=== PATIENT | female | born 1985 | race Caucasian/White ===

== ENCOUNTER 2018-08-19 21:10 | Emergency (ER) | payer BC ==
[~2018-08-19] VITALS: Ht 152.4 cm; Wt 78.5 kg
[2018-08-19 21:18] VITALS: Ht 152.4 cm; Wt 78.5 kg
[2018-08-19 21:59] LABS: BASOPHIL % 0.7 % (0-2); PLATELET COUNT 358 x10^3mcL (130-400); RED CELL DISTRIBUTION WIDTH 12.6 % (11.5-14.5)
[2018-08-19 22:17] LABS: CALCIUM 9.1 mg/dL (8.5-10.1); CHLORIDE SERUM 103 mmol/L (98-107); CREATININE SERUM 0.7 mg/dL (0.6-1.0); GFR1 > 60 mL/min; GLUCOSE SERUM 106 mg/dL (74-106); POTASSIUM SERUM 3.5 mmol/L (3.5-5.1); SODIUM SERUM 139 mmol/L (136-145)
[2018-08-19 22:22] LABS: ALBUMIN 3.8 g/dL (3.4-5.0); ALKALINE PHOSPHATASE 61 U/L (46-116); ALT/SGPT 24 U/L (14-59); AST/SGOT 12 U/L (15-37); BILIRUBIN TOTAL 0.16 mg/dL (0.20-1.00); TOTAL PROTEIN, SERUM 7.3 g/dL (6.4-8.2)
[2018-08-20 00:36] VITALS: BP 98/60
== END 2018-08-20 00:36 | disposition home or self-care (01) ==
LOC: ED 21:10
PROVIDERS: Emergency Medicine
DX: N80.9 Endometriosis, unspecified (principal); Z88.0 Allergy status to penicillin; Z88.1 Allergy status to other antibiotic agents; Z98.890 Other specified postprocedural states; Z87.42 Personal history of other diseases of the female genital tract
CPT/HCPCS: 36415; J1885

== ENCOUNTER 2020-03-18 20:20 | Emergency (ER) | payer BC ==
[~2020-03-18] VITALS: Ht 152.4 cm; Wt 82.3 kg
[2020-03-18 20:31] VITALS: Ht 152.4 cm; Wt 82.3 kg
[2020-03-18 22:18] LABS: BASOPHIL % 0.6 % (0.2-1.3); PLATELET COUNT 398 x10^3mcL (179-408)
[2020-03-18 22:23] LABS: CALCIUM 8.5 mg/dL (8.5-10.1); CARBON DIOXIDE 29.7 mmol/L (21-32); CHLORIDE SERUM 104 mmol/L (98-107); CREATININE SERUM 0.7 mg/dL (0.6-1.0); GFR1 > 60 mL/min; GLUCOSE SERUM 109 mg/dL (74-106); POTASSIUM SERUM 3.6 mmol/L (3.5-5.1); SODIUM SERUM 141 mmol/L (136-145)
[2020-03-18 22:31] LABS: ALBUMIN 3.8 g/dL (3.4-5.0); ALKALINE PHOSPHATASE 67 U/L (46-116); ALT/SGPT 28 U/L (14-59); AST/SGOT 14 U/L (15-37); BILIRUBIN TOTAL 0.1 mg/dL (0.20-1.00); LIPASE 119 IU/L (73-393); TOTAL PROTEIN, SERUM 7.3 g/dL (6.4-8.2)
[2020-03-18 23:51] VITALS: BP 126/60
== END 2020-03-18 23:51 | disposition home or self-care (01) ==
LOC: ED 20:20
PROVIDERS: Emergency Medicine
DX: N83.201 Unspecified ovarian cyst, right side (principal)

== ENCOUNTER 2020-03-28 13:28 | Emergency (ER) | payer BC ==
[~2020-03-28] VITALS: Ht 160 cm; Wt 82.6 kg
[2020-03-28 13:41] VITALS: Ht 160 cm; Wt 82.6 kg
[2020-03-28 15:00] LABS: BASOPHIL % 0.7 % (0.2-1.3); PLATELET COUNT 375 x10^3mcL (179-408); RED CELL DISTRIBUTION WIDTH 13.2 % (12.3-17.7)
[2020-03-28 15:11] LABS: microscopic required? YES; urine erythrocyte 2+ (NEGATIVE)
[2020-03-28 16:53] VITALS: BP 103/49
== END 2020-03-28 16:53 | disposition home or self-care (01) ==
LOC: ED 13:28
PROVIDERS: Emergency Medicine
DX: N83.202 Unspecified ovarian cyst, left side (principal); N83.201 Unspecified ovarian cyst, right side; E66.9 Obesity, unspecified; Z68.32 Body mass index [BMI] 32.0-32.9, adult; Z88.0 Allergy status to penicillin; Z88.1 Allergy status to other antibiotic agents
CPT/HCPCS: J1885